=== PATIENT | female | born 1960 | race Caucasian/White ===

== ENCOUNTER 2022-02-17 18:00 | Inpatient (IN) ==
[2022-02-17 21:22] LABS: Basophils % 0.4 %; Eosinophils # 0.1 K/mcL (0.0-0.6); Eosinophils % 0.9 %; Hematocrit 34.9 % (35.3-44.9); Hemoglobin 11.3 g/dL (11.5-15.4); Immature Granulocytes % 0.1 % (0-4); Lymphocytes # 1.1 K/mcL (0.6-4.6); Lymphocytes % 15.8 %; Mean Corpuscular HGB Conc 32.4 g/dL (31.6-35.5); Mean Corpuscular Hemoglobin 31.8 pg (28.0-33.3); Mean Corpuscular Volume 98.3 fL (83.0-100.0); Mean Platelet Volume 9.8 fL (9.4-12.4); Monocytes # 0.3 K/mcL (0.0-1.3); Monocytes % 3.9 %; Neutrophils # 5.3 K/mcL (1.6-8.9); Platelet Count 179 K/mcL (140-400); Red Blood Count 3.55 M/mcL (3.82-4.97); Red Cell Distribution Width 13.9 % (11.5-14.5); Segmented Neutrophils % 78.9 %; White Blood Count 6.7 K/mcL (4.3-11.1)
[2022-02-17 21:45] LABS: BUN/Creatinine Ratio 12 (6-26); Blood Urea Nitrogen 13 mg/dL (8-23); Calcium 9.5 mg/dL (8.6-10.3); Carbon Dioxide 24 mEq/L (23-29); Chloride 107 mEq/L (98-107); Glucose 119 mg/dL (70-105); Osmolality,Calculated 291 (280-300); Potassium 4.3 mEq/L (3.5-5.1); Sodium 140 mEq/L (136-145)
[2022-02-17 21:46] LABS: Troponin I < 0.03 ng/mL (< 0.04)
[2022-02-17] MEDS ORDERED: Furosemide 40 MG in 0.9 % Sodium Chloride 50 ML IVPB ONE (22:22)
[2022-02-17] MEDS ORDERED: Furosemide 40 MG/4 ML VIAL IVP ONE (22:30)
[2022-02-18] MEDS ORDERED: Naloxone 0.4 MG/ML INJ IVP PRN (02:27)
[2022-02-18] MEDS ORDERED: Ondansetron 4 MG/2 ML VIAL IVP PRN (02:27)
[2022-02-18 07:48] LABS: Bilirubin,Urine Negative (Negative); Blood,Urine Negative (Negative); Clarity,Urine Clear (Clear); Color,Urine Yellow (Yellow); Glucose,Urine (UA) Normal (Normal); Ketones,Urine Negative (Negative); Leukocyte Esterase,Urine Negative (Negative); Nitrite,Urine Negative (Negative); Protein,Urine Trace mg/dL (Neg-Trace); Specific Gravity,Urine 1.013 (1.010-1.025); Urobilinogen,Urine Normal (Normal)
[2022-02-18 07:51] LABS: Basophils % 0.2 %; Eosinophils # 0.1 K/mcL (0.0-0.6); Eosinophils % 1.7 %; Hematocrit 33.6 % (35.3-44.9); Hemoglobin 10.9 g/dL (11.5-15.4); Immature Granulocytes % 0.3 % (0-4); Lymphocytes # 1.4 K/mcL (0.6-4.6); Lymphocytes % 20.4 %; Mean Corpuscular HGB Conc 32.4 g/dL (31.6-35.5); Mean Corpuscular Hemoglobin 31.4 pg (28.0-33.3); Mean Corpuscular Volume 96.8 fL (83.0-100.0); Mean Platelet Volume 10.1 fL (9.4-12.4); Monocytes # 0.4 K/mcL (0.0-1.3); Monocytes % 5.7 %; Neutrophils # 4.8 K/mcL (1.6-8.9); Platelet Count 179 K/mcL (140-400); Red Blood Count 3.47 M/mcL (3.82-4.97); Red Cell Distribution Width 13.8 % (11.5-14.5); Segmented Neutrophils % 71.7 %; White Blood Count 6.6 K/mcL (4.3-11.1)
[2022-02-18 08:07] LABS: INR 1.3; Prothrombin Time 14.5 Seconds (9.4-12.1)
[2022-02-18 08:17] LABS: Albumin 3.8 g/dL (3.5-5.7); Albumin/Globulin Ratio 1.3 (1.1-2.2); Bilirubin,Direct 0.2 mg/dL (0.0-0.2); Bilirubin,Indirect 0.9 mg/dL (0.0-1.0); Bilirubin,Total 1.1 mg/dL (0.3-1.0); Calcium 9.3 mg/dL (8.6-10.3); Globulin 2.9 g/dL (2.4-3.5); Magnesium 1.5 mg/dL (1.6-2.6); Potassium 3.9 mEq/L (3.5-5.1); Total Protein 6.7 g/dL (6.4-8.9); Troponin I 0.04 ng/mL (< 0.04)
[2022-02-18] MEDS: Ranolazine 500 MG TAB.ER.12H PO SCH ×2 (08:18→22:26)
[2022-02-18] MEDS: Aspirin Enteric Coated 81 MG Tablet PO SCH (08:19)
[2022-02-18] MEDS: Metoprolol XL (24 HR) Succ 25 MG TAB.ER.24H PO SCH (08:19)
[2022-02-18] MEDS: Furosemide 40 MG/4 ML VIAL IVP SCH ×2 (08:31→16:58)
[2022-02-18] MEDS: *HR* Enoxaparin 60 MG/0.6 ML SYRINGE SQ SCH (10:23)
[2022-02-18] MEDS: Ascorbic Acid 500 MG TABLET PO SCH (17:02)
[2022-02-18] MEDS: Magnesium Oxide 400 MG TABLET PO SCH (17:02)
[2022-02-18 19:03] LABS: Thyroid Stimulating Hormone 1.346 mcIU/mL (0.340-5.600)
[2022-02-18] MEDS: Famotidine 20 MG TABLET PO SCH (22:26)
[2022-02-18] MEDS: Melatonin 3 MG TABLET PO SCH (22:27)
[2022-02-19] MEDS: Aspirin Enteric Coated 81 MG Tablet PO SCH (09:51)
[2022-02-19] MEDS: *HR* Enoxaparin 60 MG/0.6 ML SYRINGE SQ SCH (09:51)
[2022-02-19] MEDS: Furosemide 20 MG/2 ML VIAL IVP SCH ×2 (09:51→22:21)
[2022-02-19] MEDS: Ranolazine 500 MG TAB.ER.12H PO SCH ×2 (09:52→22:27)
[2022-02-19] MEDS: Metoprolol XL (24 HR) Succ 25 MG TAB.ER.24H PO SCH (09:52)
[2022-02-19] MEDS ORDERED: D5% in Water 1,000 ML IVC PRN (11:53)
[2022-02-19] MEDS ORDERED: *HR* Dextrose 50 % in Water (Syg) 50 ML SYRINGE IVP PRN (11:53)
[2022-02-19] MEDS ORDERED: Dextrose Gel 15 GM/37.5 ML TUBE PO PRN ×2 (11:53)
[2022-02-19] MEDS ORDERED: *HR* LORazepam 2 MG/ML VIAL IVP ONE (12:32)
[2022-02-19 13:14] LABS: Hematocrit 33.9 % (35.3-44.9); Mean Corpuscular HGB Conc 32.4 g/dL (31.6-35.5); Mean Corpuscular Hemoglobin 31.3 pg (28.0-33.3); Mean Corpuscular Volume 96.3 fL (83.0-100.0); Mean Platelet Volume 10.4 fL (9.4-12.4); Platelet Count 171 K/mcL (140-400); Red Blood Count 3.52 M/mcL (3.82-4.97); Red Cell Distribution Width 13.5 % (11.5-14.5)
[2022-02-19 13:27] LABS: Calcium 8.8 mg/dL (8.6-10.3); Magnesium 1.4 mg/dL (1.6-2.6); Potassium 3.8 mEq/L (3.5-5.1); Troponin I 0.03 ng/mL (< 0.04)
[2022-02-19] MEDS: Ascorbic Acid 500 MG TABLET PO SCH (16:22)
[2022-02-19] MEDS: Magnesium Oxide 400 MG TABLET PO SCH (16:22)
[2022-02-19] MEDS: Insulin LISPRO 300 UNITS/3 ML VIAL SUBQ SCH ×2 (16:23→22:28)
[2022-02-19 18:12] LABS: Adenovirus Not Detected (Not Detect); Bordetella Pertussis Not Detected (Not Detect); Chlamydophila pneumoniae Not Detected (Not Detect); Coronavirus 229E Not Detected (Not Detect); Coronavirus HKU1 Not Detected (Not Detect); Coronavirus NL63 Not Detected (Not Detect); Coronavirus OC43 Not Detected (Not Detect); Human Metapneumovirus Not Detected (Not Detect); Human Rhinovirus/Enterovirus Not Detected (Not Detect); Influenza A Subtype 2009 H1 Not Detected (Not Detect); Influenza B Not Detected (Not Detect); Mycoplasma pneumoniae Not Detected (Not Detect); Parainfluenza Virus 1 Not Detected (Not Detect); Parainfluenza Virus 2 Not Detected (Not Detect); Parainfluenza Virus 3 Not Detected (Not Detect); Parainfluenza Virus 4 Not Detected (Not Detect); Respiratory Syncytial Virus Not Detected (Not Detect); SARS-CoV-2 Not Detected (Not Detect)
[2022-02-19] MEDS: Famotidine 20 MG TABLET PO SCH (22:27)
[2022-02-19] MEDS: Melatonin 3 MG TABLET PO SCH (22:27)
[2022-02-20 04:20] LABS: Hemoglobin 11.5 g/dL (11.5-15.4); Mean Corpuscular HGB Conc 32.9 g/dL (31.6-35.5); Mean Corpuscular Hemoglobin 31.5 pg (28.0-33.3); Mean Corpuscular Volume 95.9 fL (83.0-100.0); Mean Platelet Volume 10.3 fL (9.4-12.4); Platelet Count 171 K/mcL (140-400); Red Blood Count 3.65 M/mcL (3.82-4.97); Red Cell Distribution Width 13.4 % (11.5-14.5); White Blood Count 7.2 K/mcL (4.3-11.1)
[2022-02-20 04:36] LABS: Calcium 9.1 mg/dL (8.6-10.3); Magnesium 1.5 mg/dL (1.6-2.6); Potassium 3.8 mEq/L (3.5-5.1)
[2022-02-20] MEDS: Insulin LISPRO 300 UNITS/3 ML VIAL SUBQ SCH ×4 (08:22→22:26)
[2022-02-20] MEDS: Metoprolol XL (24 HR) Succ 25 MG TAB.ER.24H PO SCH (08:25)
[2022-02-20] MEDS: Aspirin Enteric Coated 81 MG Tablet PO SCH (08:25)
[2022-02-20] MEDS: Ranolazine 500 MG TAB.ER.12H PO SCH ×2 (08:25→22:21)
[2022-02-20] MEDS: *HR* Enoxaparin 60 MG/0.6 ML SYRINGE SQ SCH ×2 (08:27→22:22)
[2022-02-20] MEDS: Furosemide 20 MG/2 ML VIAL IVP SCH (08:32)
[2022-02-20] MEDS: Ascorbic Acid 500 MG TABLET PO SCH (17:13)
[2022-02-20] MEDS: Magnesium Oxide 400 MG TABLET PO SCH (17:13)
[2022-02-20] MEDS: Melatonin 3 MG TABLET PO SCH (22:21)
[2022-02-20] MEDS: Famotidine 20 MG TABLET PO SCH (22:21)
[2022-02-21 05:22] LABS: Calcium 9.1 mg/dL (8.6-10.3); Potassium 3.7 mEq/L (3.5-5.1)
[2022-02-21] MEDS: Ranolazine 500 MG TAB.ER.12H PO SCH ×2 (08:15→22:13)
[2022-02-21] MEDS: Albumin 25% 25gram/100mL 25 GM/100 ML IV.SOLN IVPB SCH ×2 (08:15→15:05)
[2022-02-21] MEDS: *HR* Enoxaparin 60 MG/0.6 ML SYRINGE SQ SCH ×2 (08:15→22:14)
[2022-02-21] MEDS: Metoprolol XL (24 HR) Succ 25 MG TAB.ER.24H PO SCH ×2 (08:15→22:14)
[2022-02-21] MEDS: Insulin LISPRO 300 UNITS/3 ML VIAL SUBQ SCH ×4 (08:16→22:15)
[2022-02-21] MEDS: Aspirin Enteric Coated 81 MG Tablet PO SCH (08:26)
[2022-02-21] MEDS ORDERED: D5% in 0.45% NACL 1,000 ML IVC SCH (13:30)
[2022-02-21] MEDS: Ascorbic Acid 500 MG TABLET PO SCH (17:14)
[2022-02-21] MEDS: Magnesium Oxide 400 MG TABLET PO SCH (17:14)
[2022-02-21] MEDS ORDERED: Famotidine 20 MG TABLET PO SCH (21:00)
[2022-02-21] MEDS: Melatonin 3 MG TABLET PO SCH (22:14)
[2022-02-21] MEDS ORDERED: Famotidine 20 MG TABLET PO ONE (22:37)
[2022-02-21 22:56] LABS: Potassium 4.1 mEq/L (3.5-5.1)
[2022-02-22 04:30] LABS: Calcium 8.9 mg/dL (8.6-10.3); Potassium 3.9 mEq/L (3.5-5.1)
[2022-02-22] MEDS: Metoprolol XL (24 HR) Succ 25 MG TAB.ER.24H PO SCH (07:48)
[2022-02-22] MEDS: Aspirin Enteric Coated 81 MG Tablet PO SCH (07:48)
[2022-02-22] MEDS: Ranolazine 500 MG TAB.ER.12H PO SCH (07:49)
[2022-02-22] MEDS: Insulin LISPRO 300 UNITS/3 ML VIAL SUBQ SCH ×2 (07:59→12:30)
[2022-02-22] MEDS: *HR* Enoxaparin 60 MG/0.6 ML SYRINGE SQ SCH (08:04)
[2022-02-22 15:06] VITALS: BP 141/78; PULSE 81; TEMP 98.3; O2SAT 94
== END 2022-02-22 16:12 | disposition home or self-care (01) | DRG 194 ==
LOC: 3BNU 18:00 → EMEROOARM 18:00 → 3BNU 02-18 13:42
PROVIDERS: ADMIT Internal Medicine; ATTEND Internal Medicine

== ENCOUNTER 2022-03-25 11:06 | Inpatient (IN) ==
[2022-03-25] MEDS ORDERED: Furosemide 40 MG/4 ML VIAL IVP ONE (13:05)
[2022-03-25 15:21] LABS: Calcium 9.3 mg/dL (8.6-10.3); Potassium 4.2 mEq/L (3.5-5.1)
[2022-03-25 15:23] LABS: Troponin I 0.03 ng/mL (< 0.04)
[2022-03-25 15:26] LABS: Basophils % 0.2 %; Eosinophils % 0.4 %; Hematocrit 36.2 % (35.3-44.9); Hemoglobin 11.6 g/dL (11.5-15.4); Immature Granulocytes % 0.2 % (0-4); Lymphocytes # 1.1 K/mcL (0.6-4.6); Lymphocytes % 13.1 %; Mean Corpuscular Hemoglobin 30.9 pg (28.0-33.3); Mean Corpuscular Volume 96.5 fL (83.0-100.0); Mean Platelet Volume 10.4 fL (9.4-12.4); Monocytes # 0.5 K/mcL (0.0-1.3); Monocytes % 6.2 %; Neutrophils # 6.5 K/mcL (1.6-8.9); Platelet Count 197 K/mcL (140-400); Red Blood Count 3.75 M/mcL (3.82-4.97); Red Cell Distribution Width 13.8 % (11.5-14.5); Segmented Neutrophils % 79.9 %; White Blood Count 8.1 K/mcL (4.3-11.1)
[2022-03-25] MEDS ORDERED: Acetaminophen 325 MG TABLET PO PRN (16:25)
[2022-03-25] MEDS ORDERED: Ondansetron 4 MG/2 ML VIAL IVP PRN (16:25)
[2022-03-25] MEDS ORDERED: Naloxone 0.4 MG/ML INJ IVP PRN (16:25)
[2022-03-25] MEDS: *HR* Heparin 5,000 UNIT/ML VIAL SQ SCH (21:37)
[2022-03-25] MEDS ORDERED: Famotidine 20 MG TABLET PO SCH (22:30)
[2022-03-25] MEDS: Ranolazine 500 MG TAB.ER.12H PO SCH (22:43)
[2022-03-25] MEDS: Melatonin 3 MG TABLET PO SCH (22:43)
[2022-03-26 03:55] LABS: Basophils % 0.2 %; Eosinophils % 0.5 %; Hemoglobin 11.4 g/dL (11.5-15.4); Immature Granulocytes % 0.4 % (0-4); Lymphocytes % 12.4 %; Mean Corpuscular HGB Conc 32.6 g/dL (31.6-35.5); Mean Corpuscular Hemoglobin 31.8 pg (28.0-33.3); Mean Corpuscular Volume 97.5 fL (83.0-100.0); Mean Platelet Volume 10.6 fL (9.4-12.4); Monocytes # 0.5 K/mcL (0.0-1.3); Monocytes % 6.4 %; Neutrophils # 6.5 K/mcL (1.6-8.9); Platelet Count 195 K/mcL (140-400); Red Blood Count 3.59 M/mcL (3.82-4.97); Segmented Neutrophils % 80.1 %; White Blood Count 8.1 K/mcL (4.3-11.1)
[2022-03-26 04:14] LABS: Calcium 9.4 mg/dL (8.6-10.3); Magnesium 1.8 mg/dL (1.6-2.6)
[2022-03-26 04:27] LABS: Thyroid Stimulating Hormone 0.856 mcIU/mL (0.340-5.600)
[2022-03-26] MEDS: *HR* Heparin 5,000 UNIT/ML VIAL SQ SCH ×3 (04:54→22:06)
[2022-03-26 05:48] LABS: Estimated Average Glucose 151 mg/dl; Hemoglobin A1C 6.9 %
[2022-03-26] MEDS ORDERED: Nitroglycerin 0.4 MG TAB.SUBL SL PRN (07:47)
[2022-03-26] MEDS ORDERED: Furosemide 40 MG/4 ML VIAL IVP SCH (09:00)
[2022-03-26] MEDS: Aspirin Enteric Coated 81 MG Tablet PO SCH (11:34)
[2022-03-26] MEDS: Metoprolol XL (24 HR) Succ 25 MG TAB.ER.24H PO SCH (11:34)
[2022-03-26] MEDS: Ranolazine 500 MG TAB.ER.12H PO SCH ×2 (11:34→22:07)
[2022-03-26 12:37] LABS: RBC,Pleural Fluid 6000 RBC/mcL
[2022-03-26 12:45] LABS: RBC,Pleural Fluid 16000 RBC/mcL
[2022-03-26 12:53] LABS: Appearance of Pleural Fl Hazy (Clear)
[2022-03-26 12:54] LABS: Appearance of Pleural Fl Cloudy (Clear)
[2022-03-26 13:02] LABS: Total Protein,Pleural Fluid 4.2 g/dL
[2022-03-26 13:03] LABS: Total Protein,Pleural Fluid 2.9 g/dL
[2022-03-26] MEDS ORDERED: *HR* Dextrose 50 % in Water (Syg) 50 ML SYRINGE IVP PRN (13:45)
[2022-03-26] MEDS ORDERED: Dextrose Gel 15 GM/37.5 ML TUBE PO PRN ×2 (13:45)
[2022-03-26] MEDS ORDERED: D5% in Water 1,000 ML IVC PRN (13:45)
[2022-03-26] MEDS: Ascorbic Acid 500 MG TABLET PO SCH (15:32)
[2022-03-26] MEDS: Multivit/Ca/Min/Fe/FA 1 TAB TABLET PO SCH (15:32)
[2022-03-26] MEDS: Cholecalciferol (D-3) 1,000 UNIT (25MCG) TABLET PO SCH (15:32)
[2022-03-26] MEDS: Cyanocobalamin (B-12) 1,000 MCG TABLET PO SCH (15:32)
[2022-03-26] MEDS: Magnesium Oxide 400 MG TABLET PO SCH (15:32)
[2022-03-26] MEDS: Insulin LISPRO 300 UNITS/3 ML VIAL SUBQ SCH ×2 (17:48→21:18)
[2022-03-26] MEDS: Famotidine 20 MG TABLET PO SCH (22:07)
[2022-03-26] MEDS: Melatonin 3 MG TABLET PO SCH (22:07)
[2022-03-27 02:52] LABS: Basophils % 0.2 %; Eosinophils % 0.6 %; Hematocrit 30.9 % (35.3-44.9); Immature Granulocytes % 0.3 % (0-4); Lymphocytes % 15.5 %; Mean Corpuscular HGB Conc 32.4 g/dL (31.6-35.5); Mean Corpuscular Volume 95.7 fL (83.0-100.0); Mean Platelet Volume 10.8 fL (9.4-12.4); Monocytes # 0.5 K/mcL (0.0-1.3); Monocytes % 8.5 %; Neutrophils # 4.8 K/mcL (1.6-8.9); Platelet Count 184 K/mcL (140-400); Red Blood Count 3.23 M/mcL (3.82-4.97); Red Cell Distribution Width 13.9 % (11.5-14.5); Segmented Neutrophils % 74.9 %; White Blood Count 6.4 K/mcL (4.3-11.1)
[2022-03-27 02:57] LABS: Calcium 8.6 mg/dL (8.6-10.3); Magnesium 1.8 mg/dL (1.6-2.6); Potassium 3.9 mEq/L (3.5-5.1)
[2022-03-27] MEDS: *HR* Heparin 5,000 UNIT/ML VIAL SQ SCH ×3 (05:09→22:53)
[2022-03-27] MEDS: Insulin LISPRO 300 UNITS/3 ML VIAL SUBQ SCH ×4 (08:29→22:53)
[2022-03-27] MEDS ORDERED: methylPREDNISolone 125 MG/2 ML VIAL IVP ONE (08:38)
[2022-03-27] MEDS ORDERED: predniSONE 20 MG TABLET PO SCH (09:00)
[2022-03-27] MEDS: Ranolazine 500 MG TAB.ER.12H PO SCH ×2 (09:38→22:54)
[2022-03-27] MEDS: Azithromycin 500 MG in 0.9 % Sodium Chloride 250 ML IVPB SCH (09:39)
[2022-03-27] MEDS: Metoprolol XL (24 HR) Succ 25 MG TAB.ER.24H PO SCH (09:39)
[2022-03-27] MEDS: Aspirin Enteric Coated 81 MG Tablet PO SCH (09:39)
[2022-03-27] MEDS: Cyanocobalamin (B-12) 1,000 MCG TABLET PO SCH (16:05)
[2022-03-27] MEDS: Multivit/Ca/Min/Fe/FA 1 TAB TABLET PO SCH (16:05)
[2022-03-27] MEDS: Cholecalciferol (D-3) 1,000 UNIT (25MCG) TABLET PO SCH (16:05)
[2022-03-27] MEDS: Magnesium Oxide 400 MG TABLET PO SCH (16:05)
[2022-03-27] MEDS: Ascorbic Acid 500 MG TABLET PO SCH (16:05)
[2022-03-27] MEDS: Ipratropium/Albuterol Neb 3 ML IH PRN (17:40)
[2022-03-27] MEDS: Famotidine 20 MG TABLET PO SCH (22:54)
[2022-03-27] MEDS: Melatonin 3 MG TABLET PO SCH (22:54)
[2022-03-28 04:47] LABS: Immature Granulocytes % 0.5 % (0-4); Lymphocytes # 0.4 K/mcL (0.6-4.6); Lymphocytes % 6.7 %; Mean Corpuscular HGB Conc 33.3 g/dL (31.6-35.5); Mean Corpuscular Hemoglobin 31.5 pg (28.0-33.3); Mean Corpuscular Volume 94.6 fL (83.0-100.0); Mean Platelet Volume 10.4 fL (9.4-12.4); Monocytes # 0.2 K/mcL (0.0-1.3); Monocytes % 2.6 %; Neutrophils # 5.8 K/mcL (1.6-8.9); Platelet Count 177 K/mcL (140-400); Red Blood Count 3.17 M/mcL (3.82-4.97); Red Cell Distribution Width 13.5 % (11.5-14.5); Segmented Neutrophils % 90.2 %; White Blood Count 6.4 K/mcL (4.3-11.1)
[2022-03-28 05:06] LABS: Calcium 8.7 mg/dL (8.6-10.3); Magnesium 2.1 mg/dL (1.6-2.6); Potassium 4.3 mEq/L (3.5-5.1)
[2022-03-28] MEDS: *HR* Heparin 5,000 UNIT/ML VIAL SQ SCH ×3 (05:40→22:34)
[2022-03-28] MEDS: Insulin LISPRO 300 UNITS/3 ML VIAL SUBQ SCH ×4 (08:09→22:35)
[2022-03-28] MEDS: Aspirin Enteric Coated 81 MG Tablet PO SCH (09:24)
[2022-03-28] MEDS: dexAMETHasone 4 MG TABLET PO SCH (09:25)
[2022-03-28] MEDS: Ranolazine 500 MG TAB.ER.12H PO SCH ×2 (09:25→22:33)
[2022-03-28] MEDS: Metoprolol XL (24 HR) Succ 25 MG TAB.ER.24H PO SCH (09:26)
[2022-03-28] MEDS: Azithromycin 500 MG in 0.9 % Sodium Chloride 250 ML IVPB SCH (09:28)
[2022-03-28] MEDS: Magnesium Oxide 400 MG TABLET PO SCH (15:21)
[2022-03-28] MEDS: Ascorbic Acid 500 MG TABLET PO SCH (15:21)
[2022-03-28] MEDS: Cholecalciferol (D-3) 1,000 UNIT (25MCG) TABLET PO SCH (15:21)
[2022-03-28] MEDS: Cyanocobalamin (B-12) 1,000 MCG TABLET PO SCH (15:21)
[2022-03-28] MEDS: Multivit/Ca/Min/Fe/FA 1 TAB TABLET PO SCH (15:21)
[2022-03-28] MEDS: Melatonin 3 MG TABLET PO SCH (22:33)
[2022-03-28] MEDS: Famotidine 20 MG TABLET PO SCH (22:34)
[2022-03-29 02:00] LABS: Basophils % 0.1 %; Hematocrit 30.5 % (35.3-44.9); Hemoglobin 9.8 g/dL (11.5-15.4); Immature Granulocytes % 0.3 % (0-4); Lymphocytes # 0.5 K/mcL (0.6-4.6); Lymphocytes % 4.7 %; Mean Corpuscular HGB Conc 32.1 g/dL (31.6-35.5); Mean Corpuscular Hemoglobin 30.9 pg (28.0-33.3); Mean Corpuscular Volume 96.2 fL (83.0-100.0); Mean Platelet Volume 10.6 fL (9.4-12.4); Monocytes # 0.4 K/mcL (0.0-1.3); Monocytes % 3.8 %; Neutrophils # 8.8 K/mcL (1.6-8.9); Platelet Count 200 K/mcL (140-400); Red Blood Count 3.17 M/mcL (3.82-4.97); Red Cell Distribution Width 13.4 % (11.5-14.5); Segmented Neutrophils % 91.1 %; White Blood Count 9.6 K/mcL (4.3-11.1)
[2022-03-29 02:14] LABS: Calcium 8.5 mg/dL (8.6-10.3); Magnesium 2.2 mg/dL (1.6-2.6); Potassium 4.5 mEq/L (3.5-5.1)
[2022-03-29] MEDS: *HR* Heparin 5,000 UNIT/ML VIAL SQ SCH ×3 (07:30→21:17)
[2022-03-29] MEDS: Aspirin Enteric Coated 81 MG Tablet PO SCH ×2 (08:22→10:33)
[2022-03-29] MEDS: Insulin LISPRO 300 UNITS/3 ML VIAL SUBQ SCH ×4 (08:23→21:23)
[2022-03-29 08:48] LABS: Calcium 8.9 mg/dL (8.6-10.3); Potassium 4.4 mEq/L (3.5-5.1)
[2022-03-29] MEDS ORDERED: Azithromycin 250 MG TABLET PO SCH (09:30)
[2022-03-29 10:27] LABS: Hematocrit 31.5 % (35.3-44.9); Hemoglobin 10.3 g/dL (11.5-15.4)
[2022-03-29] MEDS: Ranolazine 500 MG TAB.ER.12H PO SCH ×2 (10:33→21:17)
[2022-03-29] MEDS: Metoprolol XL (24 HR) Succ 25 MG TAB.ER.24H PO SCH (10:33)
[2022-03-29] MEDS: dexAMETHasone 4 MG TABLET PO SCH (10:33)
[2022-03-29] MEDS: Azithromycin 500 MG in 0.9 % Sodium Chloride 250 ML IVPB SCH (14:21)
[2022-03-29] MEDS ORDERED: Heparin 1,000 UNITS/500 mL 500 ML ONE ×2 (14:39→15:49)
[2022-03-29] MEDS ORDERED: *HR* Heparin 10,000 UNIT/10 ML VIAL ONE (14:39)
[2022-03-29] MEDS ORDERED: 0.9 % Sodium Chloride 2,000 ML ONE (14:39)
[2022-03-29] MEDS ORDERED: Iopamidol - 370 200 ML INFUS..BTL ONE (14:39)
[2022-03-29] MEDS ORDERED: Nitroglycerin 1,000 MCG/5 ML VIAL IV ONE (14:39)
[2022-03-29] MEDS ORDERED: *HR* Midazolam HCl 2 MG/2 ML VIAL ONE (15:00)
[2022-03-29] MEDS ORDERED: *HR* FentaNYL (PF) 100 MCG/2 ML VIAL ONE (15:00)
[2022-03-29] MEDS: Magnesium Oxide 400 MG TABLET PO SCH (17:34)
[2022-03-29] MEDS: Multivit/Ca/Min/Fe/FA 1 TAB TABLET PO SCH (17:34)
[2022-03-29] MEDS: Cyanocobalamin (B-12) 1,000 MCG TABLET PO SCH (17:34)
[2022-03-29] MEDS: Ascorbic Acid 500 MG TABLET PO SCH (17:34)
[2022-03-29] MEDS: Cholecalciferol (D-3) 1,000 UNIT (25MCG) TABLET PO SCH (17:35)
[2022-03-29 20:17] VITALS: BP 132/75; PULSE 85; TEMP 97.8; O2SAT 96
[2022-03-29] MEDS ORDERED: Ranolazine 500 MG TAB.ER.12H PO ONE ×2 (21:15→21:28)
[2022-03-29] MEDS: Melatonin 3 MG TABLET PO SCH (21:17)
[2022-03-29] MEDS: Famotidine 20 MG TABLET PO SCH (21:17)
[2022-03-29] MEDS: Ipratropium/Albuterol Neb 3 ML IH PRN (21:39)
[2022-03-29] MEDS ORDERED: Melatonin 3 MG TABLET PO ONE (23:58)
[2022-03-29] MEDS ORDERED: Ipratropium/Albuterol Neb 3 ML IH ONE (23:58)
[2022-03-29] MEDS ORDERED: *HR* Heparin 5,000 UNIT/ML VIAL IVP ONE (23:58)
[2022-03-29] MEDS ORDERED: Famotidine 20 MG TABLET PO ONE (23:58)
[2022-03-30 15:33] LABS: ANA IgG by ELISA NONE DETECTED (None Detected); SSA 52 (Anti-RO) Antibody 0 AU/mL (0-40); SSA 60 (Anti-RO) Antibody 0 AU/mL (0-40)
[2022-03-31 03:03] LABS: ANA HEp-2 IgG IFA <1:80 (<1:80)
[2022-03-31 07:07] LABS: Anti Fibrillarin U3 RNP NEGATIVE (Negative); Anti PM Scl EIA NEGATIVE (Negative); Anti RNA Polymerase III 5 Units (0-19)
== END 2022-03-29 23:59 | disposition other institution (70) | DRG 192 ==
LOC: 3ANU 11:06 → EMEROOARM 11:06 → SUATTDRO 17:17 → 3ANU 18:30
PROVIDERS: ADMIT Pharmacist; ATTEND Pharmacist